=== PATIENT | male | born 1950 | race American Indian/Alaskan Native ===

== ENCOUNTER 2022-01-01 21:30 | Emergency (ER) | payer BC, MEDICARE ==
[2022-01-01 22:58] VITALS: BP 128/64
[2022-01-01] MEDS ORDERED: SODIUM CHLORIDE 0.9% 1000 ML 1,000 ML IV ONE (23:17)
--- NOTE | 2022-01-01 23:22 | Emergency Department Report ---
ED GI Bleed HPI - General Chief complaint: GI Bleed Stated complaint: BLOOD IN STOOL Time Seen by Provider: 01/01/22 23:07 Source: patient, family Mode of arrival: Ambulatory Limitations: No Limitations - History of Present Illness Initial comments: Patient is 71 years old male with recent history of CABG in November. Patient follow-up at the [facility]. Patient presented to the ER complaining of painless hematochezia that started this morning. Patient stated that he had 4 bloody diarrhea so far. Patient stated that he had similar episode approximately 1 month ago and he had a full work-up at the [facility] including endoscopy and colonoscopy and they could not find the reason for the bleeding. He stated that they found a couple of polyps but they said it is not bleeding. Patient stated that he will call the [facility] today and ask him to go to the nearest ER. Patient denied any abdominal pain. No nausea or vomiting. No fever. Patient is not on any blood thinner. Patient stated that he was taking baby aspirin and they stopped it. MD complaint: gross hematochezia -: This morning Severity scale (0 -10): 3 Quality: painless Context: history of GI bleed Associated Symptoms: denies other symptoms - Related Data Home Medications Medication Instructions Recorded Confirmed Last Taken Esomeprazole Magnesium [Nexium] 20 mg PO BID 04/08/14 04/08/14 04/08/14 amLODIPine [Norvasc] 10 mg PO DAILY 04/08/14 04/08/14 04/08/14 Previous Rx's Medication Instructions Recorded Last Taken Type HYDROcodone/APAP 10-325 [[place] 1 each PO Q8HR PRN #20 tablet 04/09/14 Unknown Rx 10/325] oxyCODONE /ACETAMINOPHEN [Percocet 1 tab PO Q6HR PRN #30 tablet 04/09/14 Unknown Rx 5/325 mg] Allergies Allergy/AdvReac Type Severity Reaction Status Date / Time Penicillins Allergy Rash Verified 04/08/14 22:35 ED Review of Systems ROS: Stated complaint: BLOOD IN STOOL Other details as noted in HPI Comment: All other systems reviewed and negative Constitutional: denies: chills, fever Respiratory: denies: cough, shortness of breath, SOB with exertion, SOB at rest Cardiovascular: denies: chest pain, palpitations, dyspnea on exertion Gastrointestinal: hematochezia. denies: abdominal pain, nausea, vomiting, diarrhea, constipation, hematemesis, melena Musculoskeletal: denies: back pain Neurological: denies: headache, weakness, numbness, paresthesias, confusion ED Past Medical Hx - Past Medical History Previous Medical History?: Yes Hx Hypertension: Yes Hx Congestive Heart Failure: Yes Hx Diabetes: Yes Additional medical history: Heart Valve. Arthritis Rt hip. Cataract. Stomach Ulcers. Pneumonia - Surgical History Hx Appendectomy: Yes Additional Surgical History: knees. Left Shoulder. Heart Valve - Social History Smoking Status: Never Smoker Substance Use Type: Marijuana - Medications Home Medications: Home Medications Medication Instructions Recorded Confirmed Last Taken Type Esomeprazole Magnesium [Nexium] 20 mg PO BID 04/08/14 04/08/14 04/08/14 History amLODIPine [Norvasc] 10 mg PO DAILY 04/08/14 04/08/14 04/08/14 History HYDROcodone/APAP 10-325 [[place] 1 each PO Q8HR PRN #20 tablet 04/09/14 Unknown Rx 10/325] oxyCODONE /ACETAMINOPHEN [Percocet 1 tab PO Q6HR PRN #30 tablet 04/09/14 Unknown Rx 5/325 mg] ED Physical Exam - General Limitations: No Limitations General appearance: alert, in no apparent distress - Head Head exam: Present: atraumatic, normocephalic, normal inspection - Eye Eye exam: Present: normal appearance - ENT ENT exam: Present: normal exam, normal orophraynx, mucous membranes moist - Neck Neck exam: Present: normal inspection, full ROM. Absent: tenderness, meningismus - Respiratory Respiratory exam: Present: normal lung sounds bilaterally - Cardiovascular Cardiovascular Exam: Present: regular rate, normal rhythm, normal heart sounds - GI/Abdominal GI/Abdominal exam: Present: soft, normal bowel sounds. Absent: distended, tenderness, guarding, rebound, rigid, organomegaly, mass, bruit, pulsatile mass, hernia - Extremities Exam Extremities exam: Present: normal inspection, full ROM, normal capillary refill. Absent: tenderness, pedal edema, joint swelling, calf tenderness - Back Exam Back exam: Present: normal inspection, full ROM. Absent: CVA tenderness (R), CVA tenderness (L) - Neurological Exam Neurological exam: Present: alert, oriented X3, CN II-XII intact, normal gait, reflexes normal. Absent: motor sensory deficit - Psychiatric Psychiatric exam: Present: normal mood - Skin Skin exam: Present: warm, intact, normal color ED Course Vital Signs 01/01/22 22:46 Temperature 98.4 F Pulse Rate 89 Respiratory 20 Rate Blood Pressure 128/64 [Right] O2 Sat by Pulse 96 Oximetry ED Medical Decision Making - Lab Data Result diagrams: 01/01/22 23:17 01/01/22 23:17 - Medical Decision Making Patient is 71 years old male with recent history of CABG in November. Patient follow-up at the [facility]. Patient presented to the ER complaining of painless hematochezia that started this morning. Patient stated that he had 4 bloody diarrhea so far. Patient stated that he had similar episode approximately 1 month ago and he had a full work-up at the [facility] including endoscopy and colonoscopy and they could not find the reason for the bleeding. He stated that they found a couple of polyps but they said it is not bleeding. Patient stated that [facility] and [facility] to [facility] the [facility] ER. Patient denied any abdominal pain. No nausea or vomiting. No fever. Patient is not on any blood thinner. Patient stated that he was taking baby aspirin and they stopped it. Patient vital signs remained stable in the ER. Patient had another bloody diarrhea in the ER. Labs reviewed and showed a hemoglobin of 7.8. I discussed the patient with Dr. Stef Galvan, GI on-call and he stated that he will follow up with the patient. I discussed the patient with Dr. Hernandez, he agreed to admit the patient to medical service for further management. Critical Care Time: Yes Critical care time in (mins) excluding proc time.: 35 Critical care attestation.: If time is entered above; I have spent that time in minutes in the direct care of this critically ill patient, excluding procedure time. ED Disposition Clinical Impression: GI bleed Disposition: ADMITTED INPATIENT Is pt being admited?: Yes Condition: Stable Forms: Accompanied Note
[2022-01-01 23:52] LABS: Basophils % (Auto) 0.4 % (0.0-1.8); Eosinophils # (Auto) 0.2 K/mm3 (0.0-0.4); Hematocrit 22.7 % (35.5-45.6); Hemoglobin 7.7 gm/dl (11.8-15.2); Lymphocytes # (Auto) 0.8 K/mm3 (1.2-5.4); Lymphocytes % (Auto) 9.5 % (13.4-35.0); Mean Corpuscular HGB Conc 34 % (32-34); Mean Corpuscular Volume 94 fl (84-94); Monocytes # (Auto) 0.8 K/mm3 (0.0-0.8); Monocytes % (Auto) 9.4 % (0.0-7.3); Platelet Count 106 K/mm3 (140-440); Red Blood Count 2.43 M/mm3 (3.65-5.03); Red Cell Distribution Width 16.9 % (13.2-15.2)
[2022-01-02 00:02] LABS: INR 1.06 (0.87-1.13)
[2022-01-02 00:03] LABS: Partial Thromboplastin Time 28.9 Sec. (24.2-36.6)
[2022-01-02 00:05] LABS: Calcium 8.7 mg/dL (8.4-10.2)
[2022-01-02 00:09] LABS: Alanine Aminotransferase 9 units/L (7-56)
[2022-01-02 00:29] LABS: Bilirubin,Direct < 0.2 mg/dL (0-0.2)
== END 2022-01-02 02:47 | disposition admitted as inpatient to this hospital (09) ==
LOC: ED 21:30
DX: K92.2 Gastrointestinal hemorrhage, unspecified (principal); I10 Essential (primary) hypertension; Z88.0 Allergy status to penicillin; E11.8 Type 2 diabetes mellitus with unspecified complications; Z90.89 Acquired absence of other organs; F12.90 Cannabis use, unspecified, uncomplicated
CPT/HCPCS: 36415; 80048; 80076; 82140; 85025; 85610; 85730; 86850; 86900; 86901; 96360; 99291; J7030; Q0162